=== PATIENT | female | born 1980 | race Caucasian/White ===

== ENCOUNTER → 2018-07-14 10:18 | Outpatient (CLI) | payer OTHER, SELFPAY ==
--- NOTE | 2018-07-14 | DI.US.S_ITS ---
PROCEDURE: US PELVIC COMPLETE INDICATIONS: OVARIAN CYST TECHNIQUE: Real-time scanning was performed of the pelvic organs, with image documentation. Additional endovaginal scanning was necessary due to incomplete visualization of the adnexal and endometrial structures by transabdominal scanning. COMPARISON: Outside Facility, RG, US PELVIS/TRANSVAG/DOPPLER, 03/29/2018, 16:36. FINDINGS: Transabdominal scanning: Limited scanning through the kidneys shows no hydronephrosis. No pathologic free abdominal or pelvic fluid. Endovaginal scanning: Uterus: Uterus is normal in size at 7.8 x 4 x 4.8 cm. The endometrium measures 6 mm in combined thickness. There is a potential hyperechoic endometrial polyp seen that measures 5 x 4 x 6 mm along the mid uterus. This does not demonstrate the same appearance as on the prior study, when it appeared hypoechoic. No internal vascular flow can be seen. Ovaries: The right ovary measures 3.6 x 3 x 4.3 cm. The left ovary measures 3.3 x 2.3 x 3.3 cm. The ovaries have a normal sonographic appearance, with a 2.6 cm dominant follicle seen within the right ovary. The complex right ovary cyst that was seen on the outside ultrasound is no longer seen. No adnexal masses are seen. IMPRESSION: Resolution of the previously seen complex right ovarian cyst. A simple appearing dominant cystic follicle is now seen within the right ovary. Likely endometrial polyp. Dictated by: Kenan Forbes M.D. on 07/14/2018 at 14:31 Approved by: Kenan Forbes M.D. on 07/14/2018 at 14:36
== END ==
PROVIDERS: Visit Provider Obstetrics & Gynecology
DX: N83.291 Other ovarian cyst, right side (principal)
CPT/HCPCS: 76830; 76856

== ENCOUNTER → 2023-01-20 09:53 | Outpatient (CLI) | payer OTHER, SELFPAY ==
--- NOTE | 2023-01-20 09:54 | DI.US.S_ITS ---
PROCEDURE: US EXTREMITY NONVASC LOWER LT INDICATIONS: HARD LUMP INNER THIGH, NOTICED 1 WEEKS AGO TECHNIQUE: Real-time scanning was performed of the left thigh, with image documentation. Color Doppler was also utilized. COMPARISON: None. FINDINGS: At the site of clinical concern, there is a subcutaneous nodule that is poorly defined and slightly hyperechoic to the surrounding normal fat measuring 5 x 5 x 6 mm. IMPRESSION: 6 mm nonvascular nodule seen at the site of clinical concern. Differential diagnosis includes a complex lipoma or an inflammatory lesion. If clinically desired or if this lesion becomes worse clinically, ultrasound-guided percutaneous biopsy could be considered. Dictated by: Kenan Forbes M.D. on 01/20/2023 at 10:21 Approved by: Kenan Forbes M.D. on 01/20/2023 at 10:22
== END ==
PROVIDERS: PCP Physician Assistant; Referring Provider Physician Assistant; Visit Provider Physician Assistant
DX: R22.42 Localized swelling, mass and lump, left lower limb (principal)
CPT/HCPCS: 76882